=== PATIENT | male | born 1930 | race Caucasian/White ===

== ENCOUNTER 2016-12-15 00:17 | Inpatient (IN) | payer MEDICARE, BC ==
[~2016-12-15] VITALS: Ht 170.2 cm; Wt 65.4 kg
[~2016-12-15 00:17] MED LIST: AMLO2.5T PO; ATOR40TA78 PO; LISI-170 PO; METO25TA91 PO; OXYC1TAB7 PO; TAMS0.4C2 PO
[2016-12-15 02:19] VITALS: BP 145/77
[2016-12-15] MEDS ORDERED: morphine SULFATE 10 MG/ML, 1ML IVPush PRN (06:00)
[2016-12-15] MEDS ORDERED: hydrALAzine 20 MG/ML, 1ML IVPush PRN (06:00)
[2016-12-15] MEDS ORDERED: ENALAPRILAT 1.25 MG/ML, 2ML IVPush PRN (06:00)
[2016-12-15] MEDS ORDERED: BISACODYL 10 MG SUPP PR PRN (06:00)
[2016-12-15] MEDS ORDERED: ACETAMINOPHEN 325 MG TABLET PO PRN (06:00)
[2016-12-15] MEDS ORDERED: DOCUSATE 100 MG CAPSULE PO PRN (06:00)
[2016-12-15] MEDS ORDERED: GUAIFENESIN/DM 200-20MG, 10ML UDC PO PRN (06:00)
[2016-12-15] MEDS ORDERED: HEPARIN 5,000 UNITS/ML, 1ML SQ SCH (06:00)
[2016-12-15] MEDS ORDERED: ONDANSETRON 2MG/ML, 2ML IVPush PRN (06:00)
[2016-12-15] MEDS ORDERED: OXYcodone IR 5MG TABLET PO PRN (06:00)
[2016-12-15] MEDS ORDERED: POLYETHYLENE GLYCOL 17 GM PACKET PO PRN (06:00)
[2016-12-15] MEDS: SODIUM CHLORIDE 0.9% 1,000 ML IV SCH ×2 (06:39→17:31)
[2016-12-15] MEDS: GUAIFENESIN/DM 100-10MG, 5ML UDC PO PRN ×2 (06:40→20:22)
[2016-12-15 07:24] LABS: ASPARTATE AMINO TRANSFERASE 14 U/L (15-37); BLOOD UREA NITROGEN 18 mg/dL (7-18)
[2016-12-15 07:43] VITALS: BP 130/68
[2016-12-15] MEDS: DOXYCYCLINE 100MG TABLET PO SCH ×2 (08:31→20:16)
[2016-12-15] MEDS: FLUTICASONE/VILANTEROL 100-25MCG/INH INH SCH (08:35)
[2016-12-15 13:42] VITALS: BP 126/75
[2016-12-15 20:18] VITALS: BP 140/60
[2016-12-15] MEDS ORDERED: ATORVASTATIN 40 MG TABLET PO SCH (21:00)
[2016-12-15] MEDS ORDERED: PNEUMOCOCCAL 23 VACCINE IM-VACC ONE (21:00)
[2016-12-16 01:47] VITALS: BP 132/70
[2016-12-16 07:24] VITALS: BP 132/67
[2016-12-16] MEDS: FLUTICASONE/VILANTEROL 100-25MCG/INH INH SCH (09:00)
[2016-12-16] MEDS: DOXYCYCLINE 100MG TABLET PO SCH (09:48)
[2016-12-16] MEDS ORDERED: FLUT1AER INH (11:53)
[2016-12-16] MEDS ORDERED: GUAI5SYR PO (11:53)
[2016-12-16] MEDS ORDERED: DOXY100T PO (11:53)
== END 2016-12-16 13:56 | disposition home or self-care (01) | DRG 309 ==
LOC: 5SO 02:00
PROVIDERS: ADMIT Internal Medicine; ATTEND Internal Medicine
PROC: 4B02XSZ Measurement of Cardiac Pacemaker, External Approach (ICD-10-PCS; principal; 2016-12-16)
DX: I49.8 Other specified cardiac arrhythmias (principal); I13.0 Hypertensive heart and chronic kidney disease with heart failure and stage 1 through stage 4 chronic kidney disease, or unspecified chronic kidney disease; I50.9 Heart failure, unspecified; E78.5 Hyperlipidemia, unspecified; I25.10 Atherosclerotic heart disease of native coronary artery without angina pectoris; N18.3 Chronic kidney disease, stage 3 (moderate); J44.9 Chronic obstructive pulmonary disease, unspecified; I35.1 Nonrheumatic aortic (valve) insufficiency; I34.0 Nonrheumatic mitral (valve) insufficiency; Z95.0 Presence of cardiac pacemaker; Z95.1 Presence of aortocoronary bypass graft; Z82.5 Family history of asthma and other chronic lower respiratory diseases; Z82.49 Family history of ischemic heart disease and other diseases of the circulatory system; Z79.899 Other long term (current) drug therapy; Z87.891 Personal history of nicotine dependence; Z85.46 Personal history of malignant neoplasm of prostate
CPT/HCPCS: 36415; 80053; 80061; 81003; 83036; 83735; 84439; 84443; 85025; 90732; 93306; J1644; J7030